=== PATIENT | male | born 1985 | race Caucasian/White ===

== ENCOUNTER 2018-02-06 21:40 | Emergency (ER) | payer OTHER ==
[~2018-02-06] VITALS: Ht 170.2 cm; Wt 81.7 kg
[~2018-02-06 21:40] MED LIST: CODACE30 PO; CRUTCH3 USE; CYCL10 PO; HYDACE5 PO; NAPR500 PO; NYST100000 MM; RXCODACET PO; RXCYCL10 PO; RXHYDACE PO; RXNAPNA550 PO; SERT50 PO
== END 2018-02-06 22:47 | disposition home or self-care (01) ==
LOC: ER 21:40
DX: S69.91XA Unspecified injury of right wrist, hand and finger(s), initial encounter (principal); M70.841 Other soft tissue disorders related to use, overuse and pressure, right hand; Z87.891 Personal history of nicotine dependence; X50.3XXA Overexertion from repetitive movements, initial encounter
CPT/HCPCS: 29125; 99283; L3917

== ENCOUNTER 2018-02-24 23:26 | Emergency (ER) | payer OTHER ==
[~2018-02-24] VITALS: Ht 167.6 cm; Wt 81.7 kg
== END 2018-02-25 01:41 | disposition home or self-care (01) ==
LOC: ER 23:26
DX: S93.602A Unspecified sprain of left foot, initial encounter (principal); X58.XXXA Exposure to other specified factors, initial encounter; F32.9 Major depressive disorder, single episode, unspecified; Z87.891 Personal history of nicotine dependence
CPT/HCPCS: 73630; 99283